=== PATIENT | female | born 1945 | race Caucasian/White ===

== ENCOUNTER 2020-03-11 20:37 | Inpatient (IN) ==
[2020-03-12] MEDS ORDERED: *HR* OxyCODONE/APAP 5/325 TABLET PO ONE (02:17)
[2020-03-12] MEDS ORDERED: Naloxone 0.4 MG/ML INJ IVP PRN (05:40)
[2020-03-12 07:32] LABS: Hematocrit 32.8 % (35.3-44.9); Hemoglobin 10.4 g/dL (11.5-15.4); Mean Corpuscular HGB Conc 31.7 g/dL (31.6-35.5); Mean Corpuscular Hemoglobin 28.9 pg (28.0-33.3); Mean Corpuscular Volume 91.1 fL (83.0-100.0); Mean Platelet Volume 10.2 fL (9.4-12.4); Platelet Count 223 K/mcL (140-400); Red Cell Distribution Width 13.1 % (11.5-14.5); White Blood Count 6.8 K/mcL (4.3-11.1)
[2020-03-12 07:51] LABS: BUN/Creatinine Ratio 25 (6-26); Blood Urea Nitrogen 23 mg/dL (8-23); Calcium 9.3 mg/dL (8.6-10.3); Carbon Dioxide 25 mEq/L (23-29); Chloride 97 mEq/L (98-107); Glucose 95 mg/dL (70-105); Osmolality,Calculated 277 (280-300); Potassium 4.4 mEq/L (3.5-5.1); Sodium 132 mEq/L (136-145); eGFR For African Americans > 60 (> 60); eGFR For Non-African Americans 59 (> 60)
[2020-03-12] MEDS: *HR* Heparin 5,000 UNIT/ML VIAL SQ SCH ×2 (08:39→19:42)
[2020-03-12] MEDS: Apixaban 2.5 MG TABLET PO SCH (20:15)
[2020-03-13] MEDS ORDERED: Ipratropium/Albuterol Neb 3 ML IH ONE (01:36)
[2020-03-13] MEDS: Budesonide/Formoterol 80/4.5 1 PUFF INH IH SCH ×3 (02:28→20:17)
[2020-03-13] MEDS ORDERED: *HR* LORazepam 0.5 MG TABLET PO ONE (03:38)
[2020-03-13] MEDS: Apixaban 2.5 MG TABLET PO SCH ×2 (08:27→19:47)
[2020-03-13] MEDS ORDERED: Budesonide/Formoterol 80/4.5 1 PUFF INH IH SCH (10:00)
[2020-03-13 10:12] LABS: BUN/Creatinine Ratio 26 (6-26); Blood Urea Nitrogen 23 mg/dL (8-23); Calcium 9.2 mg/dL (8.6-10.3); Carbon Dioxide 23 mEq/L (23-29); Chloride 97 mEq/L (98-107); Glucose 120 mg/dL (70-105); Osmolality,Calculated 277 (280-300); Potassium 4.3 mEq/L (3.5-5.1); Sodium 131 mEq/L (136-145); Troponin I < 0.03 ng/mL (< 0.04); eGFR For African Americans > 60 (> 60); eGFR For Non-African Americans > 60 (> 60)
[2020-03-13] MEDS: Sennosides/Docusate Sodium TABLET PO SCH (19:47)
[2020-03-13] MEDS: tiZANidine 4 MG TABLET PO SCH (19:47)
[2020-03-14] MEDS: Budesonide/Formoterol 80/4.5 1 PUFF INH IH SCH ×2 (08:07→20:29)
[2020-03-14] MEDS: atenoloL 50 MG TABLET PO SCH (08:46)
[2020-03-14] MEDS: Aspirin Enteric Coated 81 MG Tablet PO SCH (08:46)
[2020-03-14] MEDS: Sennosides/Docusate Sodium TABLET PO SCH ×2 (08:46→21:58)
[2020-03-14] MEDS: Spironolactone 25 MG TABLET PO SCH (08:46)
[2020-03-14] MEDS: Cholecalciferol (D-3) 1,000 UNIT (25MCG) TABLET PO SCH (08:46)
[2020-03-14] MEDS: Apixaban 2.5 MG TABLET PO SCH ×2 (08:47→21:58)
[2020-03-14] MEDS ORDERED: NIFEdipine XL (24 HR) 60 MG TAB.ER.24 PO SCH (09:00)
[2020-03-14 10:20] LABS: Calcium 9.2 mg/dL (8.6-10.3)
[2020-03-14] MEDS: tiZANidine 4 MG TABLET PO SCH (21:58)
[2020-03-15 03:48] LABS: BUN/Creatinine Ratio 32 (6-26); Blood Urea Nitrogen 33 mg/dL (8-23); Calcium 8.8 mg/dL (8.6-10.3); Carbon Dioxide 25 mEq/L (23-29); Chloride 99 mEq/L (98-107); Glucose 102 mg/dL (70-105); Osmolality,Calculated 281 (280-300); Potassium 4.3 mEq/L (3.5-5.1); Sodium 132 mEq/L (136-145); eGFR For African Americans > 60 (> 60); eGFR For Non-African Americans 52 (> 60)
[2020-03-15 03:50] LABS: Basophils % 0.3 %; Eosinophils # 0.2 K/mcL (0.0-0.6); Hematocrit 33.2 % (35.3-44.9); Hemoglobin 10.6 g/dL (11.5-15.4); Immature Granulocytes % 1.4 % (0-4); Lymphocytes # 1.4 K/mcL (0.6-4.6); Lymphocytes % 24.4 %; Mean Corpuscular HGB Conc 31.9 g/dL (31.6-35.5); Mean Corpuscular Hemoglobin 29.9 pg (28.0-33.3); Mean Corpuscular Volume 93.5 fL (83.0-100.0); Mean Platelet Volume 10.9 fL (9.4-12.4); Monocytes # 0.6 K/mcL (0.0-1.3); Monocytes % 9.6 %; Neutrophils # 3.6 K/mcL (1.6-8.9); Platelet Count 230 K/mcL (140-400); Red Blood Count 3.55 M/mcL (3.82-4.97); Red Cell Distribution Width 12.9 % (11.5-14.5); Segmented Neutrophils % 61.3 %; White Blood Count 5.9 K/mcL (4.3-11.1)
[2020-03-15 04:02] LABS: Thyroid Stimulating Hormone 2.141 mcIU/mL (0.340-5.600)
[2020-03-15] MEDS: Spironolactone 25 MG TABLET PO SCH (08:47)
[2020-03-15] MEDS: Aspirin Enteric Coated 81 MG Tablet PO SCH (08:47)
[2020-03-15] MEDS: Cholecalciferol (D-3) 1,000 UNIT (25MCG) TABLET PO SCH (08:48)
[2020-03-15] MEDS: Sennosides/Docusate Sodium TABLET PO SCH ×2 (08:48→21:38)
[2020-03-15] MEDS: Apixaban 2.5 MG TABLET PO SCH ×2 (08:48→21:38)
[2020-03-15] MEDS: atenoloL 50 MG TABLET PO SCH (08:48)
[2020-03-15] MEDS: Budesonide/Formoterol 80/4.5 1 PUFF INH IH SCH ×2 (10:11→20:55)
[2020-03-15] MEDS: tiZANidine 4 MG TABLET PO SCH (21:38)
[2020-03-16 05:33] LABS: Basophils % 0.5 %; Eosinophils # 0.2 K/mcL (0.0-0.6); Eosinophils % 3.5 %; Hematocrit 34.3 % (35.3-44.9); Hemoglobin 11.1 g/dL (11.5-15.4); Immature Granulocytes % 1.9 % (0-4); Lymphocytes # 1.2 K/mcL (0.6-4.6); Lymphocytes % 29.3 %; Mean Corpuscular HGB Conc 32.4 g/dL (31.6-35.5); Mean Corpuscular Volume 92.7 fL (83.0-100.0); Mean Platelet Volume 11.2 fL (9.4-12.4); Monocytes # 0.5 K/mcL (0.0-1.3); Monocytes % 12.1 %; Neutrophils # 2.2 K/mcL (1.6-8.9); Platelet Count 212 K/mcL (140-400); Red Cell Distribution Width 12.9 % (11.5-14.5); Segmented Neutrophils % 52.7 %; White Blood Count 4.2 K/mcL (4.3-11.1)
[2020-03-16 05:53] LABS: BUN/Creatinine Ratio 30 (6-26); Blood Urea Nitrogen 28 mg/dL (8-23); Calcium 8.9 mg/dL (8.6-10.3); Carbon Dioxide 22 mEq/L (23-29); Chloride 100 mEq/L (98-107); Glucose 86 mg/dL (70-105); Osmolality,Calculated 279 (280-300); Potassium 4.5 mEq/L (3.5-5.1); Sodium 132 mEq/L (136-145); eGFR For African Americans > 60 (> 60); eGFR For Non-African Americans 59 (> 60)
[2020-03-16] MEDS: Budesonide/Formoterol 80/4.5 1 PUFF INH IH SCH (07:33)
[2020-03-16] MEDS: Aspirin Enteric Coated 81 MG Tablet PO SCH (08:55)
[2020-03-16] MEDS: Sennosides/Docusate Sodium TABLET PO SCH (08:55)
[2020-03-16] MEDS: Cholecalciferol (D-3) 1,000 UNIT (25MCG) TABLET PO SCH (08:55)
[2020-03-16] MEDS: Spironolactone 25 MG TABLET PO SCH (08:55)
[2020-03-16] MEDS: Apixaban 2.5 MG TABLET PO SCH (08:55)
[2020-03-16] MEDS: atenoloL 50 MG TABLET PO SCH (08:55)
[2020-03-16] MEDS ORDERED: tiZANidine 4 MG TABLET PO PRN (15:27)
[2020-03-16 16:01] VITALS: BP 111/58
[2020-03-17] MEDS ORDERED: Metoprolol XL (24 HR) Succ 25 MG TAB.ER.24H PO SCH (09:00)
[2020-03-17] MEDS ORDERED: Spironolactone 25 MG TABLET PO SCH (09:00)
== END 2020-03-16 17:42 | disposition home health service (06) | DRG 179 ==
LOC: CDU → SUATTDRO 03-12 00:56 → 2NENU 03-13 18:57 → SUATTDRO 03-13 19:38
PROVIDERS: ADMIT Internal Medicine; ATTEND Pharmacist